=== PATIENT | female | born 1965 | race African-American/Black ===

== ENCOUNTER 2023-03-31 20:55 | Emergency (ER) | payer BC ==
[~2023-03-31] VITALS: Ht 170.2 cm; Wt 111.1 kg
[2023-03-31 20:59] VITALS: BP_SYST 137; PULSE 80; RESP 20; TEMP 97.7; O2SAT 98
[2023-03-31 21:30] VITALS: TEMP 97.7
[2023-03-31 21:43] LABS: BASOPHILS # (AUTO) 0.1 K/uL (0.0-0.2); BASOPHILS % (AUTO) 0.8 % (0.0-2.0); EOSINOPHILS # (AUTO) 0.1 K/uL (0.0-0.4); EOSINOPHILS % (AUTO) 1.6 % (0.0-4.0); HEMATOCRIT 38.1 % (36-48); HEMOGLOBIN 11.9 g/dL (12.0-16.0); LYMPHOCYTES # (AUTO) 1.9 K/uL (1.0-5.5); LYMPHOCYTES % (AUTO) 26.3 % (20.5-51.5); MEAN CORPUSCULAR HEMOGLOBIN 26 pg (27-31); MEAN CORPUSCULAR HGB CONC 31 % (32-36); MEAN CORPUSCULAR VOLUME 83 fL (79.0-98.0); MONOCYTES # (AUTO) 0.5 K/uL (0.0-1.0); MONOCYTES % (AUTO) 6.8 % (1.7-9.3); NEUTROPHILS # (AUTO) 4.6 K/uL (1.8-7.7); NEUTROPHILS % (AUTO) 64.5 % (40.0-70.0); PLATELET COUNT (AUTO) 246 K/uL (130-430); RED BLOOD CELL COUNT(AUTO) 4.58 MIL/uL (4.2-6.2); RED CELL DISTRIBUTION WIDTH 13.7 % (9.0-15.0); WHITE BLOOD COUNT (AUTO) 7.1 K/uL (4.8-10.8)
[2023-03-31 21:53] LABS: ANION GAP 8 (5-15); CALCIUM 9.5 mg/dL (8.4-11.0); CARBON DIOXIDE 29 mmol/L (23-29); CHLORIDE 101 mmol/L (98-107); CREATININE 0.83 mg/dL (0.55-1.30); GFR AFRICAN AMERICAN 90 mL/min (>90); GLUCOSE 97 mg/dL (74-106); POTASSIUM 3.6 mmol/L (3.5-5.1); SODIUM SERUM 138 mmol/L (136-145); UREA NITROGEN, BLOOD 10 mg/dL (8-21)
[2023-03-31 21:55] LABS: GFR NON AFRICAN-AMERICAN 75 mL/min (>90)
[2023-03-31 22:00] LABS: ALANINE AMINOTRANSFERASE 13 U/L (12-78); ALBUMIN 3.7 g/dL (3.4-4.8); ASPARTATE AMINOTRANSFERASE 19 U/L (10-37); TOTAL BILIRUBIN 0.2 mg/dL (0.0-1.0); TOTAL PROTEIN, SERUM 8.1 g/dL (6.4-8.3)
[2023-03-31 23:20] VITALS: BP_SYST 104; PULSE 66; RESP 16; O2SAT 97
== END 2023-03-31 23:38 | disposition home or self-care (01) ==
LOC: MERGE 20:55 → SED 20:55
DX: R29.810 Facial weakness (principal); R20.2 Paresthesia of skin; Z79.899 Other long term (current) drug therapy
CPT/HCPCS: 36415; 70450-TC; 76376; 80053; 84484; 85025; 93005; 99284